=== PATIENT | male | born 1980 | race Caucasian/White ===

== ENCOUNTER 2018-06-05 07:33 | Day surgery (SDC) | payer OTHER ==
[2018-06-05] MEDS ORDERED: LIDOCAINE 4% SOLUTION 50 ML BTL (08:31)
[2018-06-05] MEDS ORDERED: FENTAnyl 50 MCG/ML VIAL (10:06)
[2018-06-05] MEDS ORDERED: MIDAZOLAM 1 MG/ML 2 ML INJ ×2 (10:06→10:07)
== END 2018-06-05 10:19 | disposition home or self-care (01) ==
LOC: GIL 07:33
DX: K29.30 Chronic superficial gastritis without bleeding (principal); K63.5 Polyp of colon
CPT/HCPCS: 43239; 88305; 88312